=== PATIENT | male | born 2000 | race Caucasian/White ===

== ENCOUNTER 2021-11-23 02:01 | Emergency (ER) | payer BC, OTHER ==
[~2021-11-23] VITALS: Ht 182.9 cm; Wt 113.0 kg
[~2021-11-23 02:01] MED LIST: AMOX-263 PO; IBUP600T27 PO
[2021-11-23 04:00] VITALS: BP 147/32
[2021-11-23] MEDS ORDERED: cefTRIAXone SOD 1,000 MG VL IM ONE (04:00)
[2021-11-23] MEDS ORDERED: AMOX500T86 PO (04:42)
== END 2021-11-23 04:52 | disposition home or self-care (01) ==
LOC: ER 02:01
DX: S61.451A Open bite of right hand, initial encounter (principal); M25.511 Pain in right shoulder; Z88.0 Allergy status to penicillin; W50.3XXA Accidental bite by another person, initial encounter; Y93.89 Activity, other specified; Y92.89 Other specified places as the place of occurrence of the external cause; Y99.8 Other external cause status
CPT/HCPCS: 96372; 99283; J0696; 73130